=== PATIENT | male | born 1975 ===

== ENCOUNTER 2018-11-10 13:36 | Emergency (ER) | payer SELFPAY ==
[2018-11-10 13:48] VITALS: TEMP 98.2
[2018-11-10] MEDS ORDERED: Multivitamin (MVI) 10 ML, Thiamine 100 MG, Folic Acid 1 MG in Sodium Chloride 0.9% 1,00... IV STA (14:14)
--- NOTE | 2018-11-10 14:23 | C.PDOC ---
History Of Present Illness 43 y/o male brought in to the ED by ex-girlfriend for alcohol abuse. Patient appears intoxicated on arrival, history obtained from ex-girlfriend at bedside. She states patient showed up to her work today stating he wanted to and would drink himself to . Reports that patient has a longstanding history of alcohol abuse but lately has been drinking more aggressively. In September he detoxed at [facility] and began drinking again the day he was discharged. At that time he also sustained a fall with significant head injury, had a CT scan, but girlfriend cannot recall results. Girlfriend reports breaking things off this month due to the drinking. Time Seen by Provider: 11/10/18 13:56 Chief Complaint (Nursing): Substance Abuse History Per: Patient History/Exam Limitations: intoxication Onset/Duration Of Symptoms: Days Current Symptoms Are (Timing): Still Present Suicide/Self Injury Attempted (Context): None Modifying Factor(s): Alcohol Additional History Per: Girlfriend (ex) Past Medical History Reviewed: Historical Data, Nursing Documentation, Vital Signs Vital Signs: Last Vital Signs Temp 98.2 F 11/10/18 13:44 Pulse 107 H 11/10/18 13:44 Resp 18 11/10/18 13:44 BP 115/76 11/10/18 13:44 Pulse Ox 96 11/10/18 13:44 - Medical History PMH: No Chronic Diseases Surgical History: No Surg Hx Family History: States: Unknown Family Hx - Social History Hx Alcohol Use: Yes Hx Substance Use: No Review Of Systems Review Of Systems: ROS cannot be obtained secondary to pt's inabilty to answer questions. Physical Exam - Physical Exam Appears: Non-toxic, No Acute Distress, Other (Appears intoxicated, + alcohol on breath) Skin: Warm, Dry Head: Atraumatic (with old wound to left eyebrow), Normacephalic Eye(s): bilateral: PERRL, EOMI, left: Other (Ecchymosis near left eye, old per girlfriend) Oral Mucosa: Moist Neck: Normal ROM Chest: Symmetrical Cardiovascular: Rhythm Regular, No Murmur Respiratory: Normal Breath Sounds, No Accessory Muscle Use, Other (No respiratory distress) Gastrointestinal/Abdominal: Soft, No Tenderness, No Distention Extremity: Bilateral: Atraumatic, Normal Color And Temperature Pulses: Left Dorsalis Pedis: Normal, Right Dorsalis Pedis: Normal Neurological/Psych: Other (Awake, moving extremities spontaneously, not responding to questions) ED Course And Treatment - Laboratory Results Result Diagrams: 11/10/18 14:40 11/10/18 14:40 Lab Interpretation: Abnormal (ETOH 436) O2 Sat by Pulse Oximetry: 96 (RA) Pulse Ox Interpretation: Normal - CT Scan/US CT Head Other Rad Studies (CT/US): Read By Radiologist, Radiology Report Reviewed CT/US Interpretation: Accession No. : [id number]. Patient Name / ID : TATY HEBERT / [id number]. Exam Date : 11/10/2018 15:01:40 ( Approved ). Study Comment : Sex / Age : M / 43Y. Creator : Sharee Goodwin. Dictator : Jonathan Bruner MD. Trial Manager : Senior Electronics Engineer : Jonathan Bruner MD. Approver2 : Report Date : 11/10/2018 15:07:33. My Comment : . Date of service: 11/10/2018. PROCEDURE: CT HEAD WITHOUT CONTRAST. HISTORY: head injury. COMPARISON: None available. TECHNIQUE: Axial computed tomography images were obtained through the head/brain without intravenous contrast. Radiation dose: Total exam DLP = 904.44 mGy-cm. This CT exam was performed using one or more of the following dose reduction techniques: Automated exposure control, adjustment of the mA and/or kV according to patient size, and/or use of iterative reconstruction technique. FINDINGS: HEMORRHAGE: No intracranial hemorrhage. BRAIN: Normal prado-white matter differentiation and density are appreciated throughout the cerebrum and cerebellum with the brainstem appearing unremarkable as well. There is no mass effect. There is no suspicious extra-axial fluid collection and the midline brain anatomy appears diffusely unremarkable. VENTRICLES: Unremarkable. No hydrocephalus. CALVARIUM: No destructive bony lesion or displaced fracture identified including through the skullbase. PARANASAL SINUSES: Unremarkable as visualized. No significant inflammatory changes. MASTOID AIR CELLS: Unremarkable as visualized. No inflammatory changes. OTHER FINDINGS: None. IMPRESSION: Unremarkable noncontrast head CT. Progress Note: Patient remaines sleeping quietly in ED. 10:00 Patient awake and becoming restless. Librium 50mg po ordered. 11:00 Patient spoken to by fibreglass lay up worker. Denies being suicidal at this time. There are currently no detox beds. He is provided with resource list of additional programs and will be placed on the wait list for our beds. Reevaluation Time: 00:01 Reassessment Condition: Improved (Patient is awake and alert. He is concerned about his drinking and his relationship with his girlfriend but states that he is not currently suicidal.) Medical Decision Making Medical Decision Making: Plan: - CMP - UDS - Alcohol serum - Magnesium - Phosphorous - CBC - UA - CT Head - IVF banana bag Disposition Counseled Patient/Family Regarding: Studies Performed, Diagnosis, Need For Followup - Disposition Referrals: Alcoholics Anonymous [Outside] [facility] [Outside] Disposition: HOME/ ROUTINE Disposition Time: 00:10 Condition: IMPROVED Instructions: Alcohol Abuse and Alcoholism (DC) Forms: [place] (Polish) Print Language: AUSTRALIAN - Clinical Impression Clinical Impression: Alcohol intoxication - Scribe Statement The provider has reviewed the documentation as recorded by the Rositaibcasey Ramirez Provider Attestation: All medical record entries made by the Rositaibe were at my direction and personally dictated by me. I have reviewed the chart and agree that the record accurately reflects my personal performance of the history, physical exam, medical decision making, and the department course for this patient. I have also personally directed, reviewed, and agree with the discharge instructions and disposition.
[2018-11-10] MEDS ORDERED: Sodium Chloride 0.9% 1,000 ML ONE (14:28)
[2018-11-10 14:45] LABS: BASO # 0.1 K/uL (0.0-0.2); BASO % 0.6 % (0.0-2.0); EOS % 0.4 % (0.0-4.0); LYMPH # 2.1 K/uL (1.0-4.3); LYMPH % 22.3 % (20.0-40.0); MEAN CORPUSCULAR HEMOGLOBIN 31.4 pg (27.0-31.0); MEAN CORPUSCULAR HGB CONC 34.6 g/dL (33.0-37.0); MEAN PLATELET VOLUME 7.6 fL (7.2-11.7); MONO # 0.8 K/uL (0.0-0.8); MONO % 8.1 % (0.0-10.0); NEUT # 6.4 K/uL (1.8-7.0); NEUT % 68.6 % (50.0-75.0); RBC 4.13 Mil/uL (4.40-5.90); RED CELL DISTRIBUTION WIDTH 13.6 % (11.5-14.5); WHITE BLOOD COUNT 9.4 K/uL (4.8-10.8)
[2018-11-10 14:57] LABS: ALB/GLOB RATIO 1.6 (1.0-2.1); ALBUMIN 4.5 g/dL (3.5-5.0); ALT/SGPT 61 U/L (21-72); AST/SGOT 111 U/L (17-59); BLOOD UREA NITROGEN 9 mg/dL (9-20); CALCIUM 8.4 mg/dl (8.6-10.4); GFR NON-AFRICAN AMERICAN > 60
[2018-11-10] MEDS ORDERED: Multivitamin (MVI) 10 ML, Thiamine 100 MG, Folic Acid 1 MG in Sodium Chloride 0.9% 1,00... IV ONE (15:00)
[2018-11-10 15:12] LABS: URINE BACTERIA RARE (<OCC); URINE BILIRUBIN NEGATIVE (NEGATIVE); URINE BLOOD 1+ (NEGATIVE); URINE CLARITY Clear (Clear); URINE COLOR Yellow (YELLOW); URINE GLUCOSE (UA) NORMAL (Normal); URINE LEUKOCYTE ESTERASE NEG Leu/uL (Negative); URINE PROTEIN 1+ mg/dL (NEGATIVE); URINE UROBILINOGEN NORMAL mg/dL (0.2-1.0)
[2018-11-10 15:14] LABS: SQUAMOUS EPITHIAL < 1 /hpf (0-5)
--- NOTE | 2018-11-10 15:15 | CT ---
Date of service: 11/10/2018 PROCEDURE: CT HEAD WITHOUT CONTRAST. HISTORY: head injury COMPARISON: None available. TECHNIQUE: Axial computed tomography images were obtained through the head/brain without intravenous contrast. Radiation dose: Total exam DLP = 904.44 mGy-cm. This CT exam was performed using one or more of the following dose reduction techniques: Automated exposure control, adjustment of the mA and/or kV according to patient size, and/or use of iterative reconstruction technique. FINDINGS: HEMORRHAGE: No intracranial hemorrhage. BRAIN: Normal prado-white matter differentiation and density are appreciated throughout the cerebrum and cerebellum with the brainstem appearing unremarkable as well. There is no mass effect. There is no suspicious extra-axial fluid collection and the midline brain anatomy appears diffusely unremarkable. VENTRICLES: Unremarkable. No hydrocephalus. CALVARIUM: No destructive bony lesion or displaced fracture identified including through the skullbase. PARANASAL SINUSES: Unremarkable as visualized. No significant inflammatory changes. MASTOID AIR CELLS: Unremarkable as visualized. No inflammatory changes. OTHER FINDINGS: None. IMPRESSION: Unremarkable noncontrast head CT.
[2018-11-10 15:51] LABS: BARBITURATES, UR NEGATIVE (NEGATIVE); BENZODIAZEPINES, UR NEGATIVE (NEGATIVE); OPIATES, UR NEGATIVE (NEGATIVE); PHENCYCLIDINE, UR NEGATIVE (NEGATIVE)
[2018-11-11 00:22] VITALS: BP 132/84; PULSE 95; RESP 16; O2SAT 100
== END 2018-11-11 00:39 | disposition home or self-care (01) ==
LOC: C.ER 13:36
DX: F10.129 Alcohol abuse with intoxication, unspecified (principal); Y90.8 Blood alcohol level of 240 mg/100 ml or more
CPT/HCPCS: 70450; 80053; 81001; 82948; 83735; 84100; 85025; 96374; 99285; G0480; J3411; J7030